=== PATIENT | male | born 1975 | race Caucasian/White ===

== ENCOUNTER 2017-04-12 22:33 | Emergency (ER) | payer OTHER ==
[~2017-04-12] VITALS: Ht 170.2 cm; Wt 80.0 kg
[2017-04-12 23:46] VITALS: Ht 170.2 cm; Wt 80.0 kg
[2017-04-13] MEDS ORDERED: ONDANSETRON 4 MG INJ IV STA (02:09)
[2017-04-13] MEDS ORDERED: SOD CHLORIDE 0.9% 1,000 ML IV STA (02:09)
[2017-04-13] MEDS ORDERED: LIDOCAINE/MYLANTA 40 ML BTL PO ONE (02:30)
[2017-04-13 02:50] LABS: BASOPHIL # 0.1 10^3/ul (0.0-0.1); BASOPHILS % 0.9 % (0.0-2.0); EOSINOPHILS % 0.2 % (0.0-7.0); HEMOGLOBIN 16.1 g/dl (14.0-18.0); LYMPHOCYTES % 31.2 % (15.0-51.0); MEAN CORPUSCULAR HEMOGLOBIN 27.7 pg (29.0-33.0); MEAN PLATELET VOLUME 9.8 fl (7.4-10.4); MONOCYTE # 0.6 10^3/ul (0.3-0.9); MONOCYTES % 6.1 % (0.0-11.0); NEUTROPHILS % 61.3 % (39.0-77.0); PLATELET COUNT 275 10^3/UL (140-415); RED BLOOD COUNT 5.82 10^6/ul (4.70-6.10); RED CELL DISTRIBUTION WIDTH 13.8 % (11.5-14.5); WHITE BLOOD COUNT 9.7 10^3/ul (4.8-10.8)
[2017-04-13 03:08] LABS: ALBUMIN 4.6 g/dl (3.3-4.9); ALBUMIN/GLOBULIN RATIO 1.31; BILIRUBIN,INDIRECT 0.4 mg/dl (0-1.1); BILIRUBIN,TOTAL 0.4 mg/dl (0.2-1.3); CALCIUM 8.5 mg/dl (8.4-10.2); CREATININE 0.75 mg/dl (0.61-1.24); POTASSIUM 3.8 mmol/L (3.5-5.1); TOTAL PROTEIN 8.1 g/dl (6.1-8.1)
[2017-04-13 03:16] LABS: ADD UMIC NO; UR ASCORBIC ACID NEGATIVE (NEGATIVE); UR BILIRUBIN (Dip) NEGATIVE (NEGATIVE); UR BLOOD (Dip) NEGATIVE (NEGATIVE); UR CLARITY CLEAR (CLEAR); UR COLOR COLORLESS (YELLOW); UR GLUCOSE (Dip) NEGATIVE (NEGATIVE); UR KETONES (Dip) NEGATIVE (NEGATIVE); UR LEUKOCYTE ESTERASE (Dip) NEGATIVE Leu/ul (NEGATIVE); UR NITRITE (Dip) NEGATIVE (NEGATIVE); UR RBC 0 /HPF (0-5); UR SPECIFIC GRAVITY (Dip) 1.001 (1.003-1.030); UR TOTAL PROTEIN (Dip) NEGATIVE (NEGATIVE); UR UROBILINOGEN (Dip) NEGATIVE (NEGATIVE)
--- NOTE | 2017-04-13 04:00 | ERD ---
ER Documentation Chief Complaint Date/Time DATE: 04/13/17 TIME: 03:58 Chief Complaint Pt. states he has been drinking for 2 weeks, today he "feels like shit" HPI Several 41-year-old male comes in today with complaints of not feeling well after 2 week drinking binge. Denies suicidal homicidal ideation. Denies any other current complaints. ROS All systems reviewed and are negative except as per history of present illness. Medications Home Meds No Active Prescriptions or Reported Meds Allergies Allergies: Coded Allergies: No Known Allergy (Unverified , 06/06/16) PMhx/Soc Medical and Surgical Hx: pt denies Medical Hx, pt denies Surgical Hx Hx Alcohol Use: Yes (OCCASSIONAL) Hx Substance Use: No Hx Tobacco Use: No Smoking Status: Unknown if ever smoked Physical Exam Vitals Vital Signs Date Time Temp Pulse Resp B/P Pulse Ox O2 Delivery O2 Flow Rate FiO2 04/12/17 23:46 98.0 126 20 141/97 0 Physical Exam Const: [] Head: Atraumatic Eyes: Normal Conjunctiva ENT: Normal External Ears, Nose and Mouth. Neck: Full range of motion..~ No meningismus. Resp: Clear to auscultation bilaterally Cardio: Regular rate and rhythm, no murmurs Abd: Soft, non tender, non distended. Normal bowel sounds Skin: No petechiae or rashes Back: No midline or flank tenderness Ext: No cyanosis, or edema Neur: Awake and alert Psych: Normal Mood and Affect Result Diagram: 04/13/1721404/13/17 0215 Results 24 hrs Laboratory Tests Test 04/13/17 02:15 White Blood Count 9.710^3/ul Red Blood Count 5.8210^6/ul Hemoglobin 16.1g/dl Hematocrit 46.0% Mean Corpuscular Volume 79.0fl Mean Corpuscular Hemoglobin 27.7pg Mean Corpuscular Hemoglobin Concent 35.0g/dl Red Cell Distribution Width 13.8% Platelet Count 25429^3/UL Mean Platelet Volume 9.8fl Neutrophils % 61.3% Lymphocytes % 31.2% Monocytes % 6.1% Eosinophils % 0.2% Basophils % 0.9% Nucleated Red Blood Cells % 0.0/100WBC Neutrophils # (Manual) 5.910^3/ul Lymphocytes # 3.010^3/ul Monocytes # 0.610^3/ul Eosinophils # 0.010^3/ul Basophils # 0.110^3/ul Nucleated Red Blood Cells # 0.010^3/ul Urine Color COLORLESS Urine Clarity CLEAR Urine pH 7.0 Urine Specific [place] 1.001 Urine Ketones NEGATIVEmg/dL Urine Nitrite NEGATIVEmg/dL Urine Bilirubin NEGATIVEmg/dL Urine Urobilinogen NEGATIVEmg/dL Urine Leukocyte Esterase NEGATIVELeu/ul Urine Microscopic RBC 0/HPF Urine Microscopic WBC 0/HPF Urine Hemoglobin NEGATIVEmg/dL Urine Glucose NEGATIVEmg/dL Urine Total Protein NEGATIVEmg/dl Sodium Level 142mmol/L Potassium Level 3.8mmol/L Chloride Level 94mmol/L Carbon Dioxide Level 27mmol/L Anion Gap 25 Blood Urea Nitrogen 10mg/dl Creatinine 0.75mg/dl Glucose Level 121mg/dl Calcium Level 8.5mg/dl Total Bilirubin 0.4mg/dl Direct Bilirubin 0.00mg/dl Indirect Bilirubin 0.4mg/dl Aspartate Amino Transf (AST/SGOT) 64IU/L Alanine Aminotransferase (ALT/SGPT) 53IU/L Alkaline Phosphatase 132IU/L Total Protein 8.1g/dl Albumin 4.6g/dl Globulin 3.50g/dl Albumin/Globulin Ratio 1.31 Lipase 341U/L Current Medications Medications (Trade) Dose Ordered Sig/Kentrell Route PRN Reason Start Time Stop Time Status Last Admin Dose Admin Sodium Chloride (NS) 1,000 ml @ 1,000 mls/hr Q1H STAT IV 04/13/17 02:09 04/13/17 03:08 DC 04/13/17 02:29 Ondansetron HCl (Zofran Inj) 4 mg ONCE STAT IV 04/13/17 02:09 04/13/17 02:11 DC 04/13/17 02:29 Miscellaneous Medication (Gi Cocktail (2)) 40 ml ONCE ONCE PO 04/13/17 02:30 04/13/17 02:31 DC 04/13/17 02:29 Procedures/MDM Medical decision-making: Very pleasant patient comes in for alcohol abuse. At this point clinically stable. Patient be discharged home. Departure Diagnosis: Primary Impression: Alcoholic intoxication Complication of substance-induced condition: uncomplicated Qualified Code: F10.920 - Alcoholic intoxication without complication Condition: Stable Patient Instructions: Alcohol Abuse MALLORIE BARCLAY Apr 13, 2017 04:00
[2017-04-13 04:05] VITALS: BP 136/89; PULSE 98; RESP 18
== END 2017-04-13 04:07 | disposition home or self-care (01) ==
LOC: E/R 22:33
DX: F10.920 Alcohol use, unspecified with intoxication, uncomplicated (principal); R40.2252 Coma scale, best verbal response, oriented, at arrival to emergency department; R40.2142 Coma scale, eyes open, spontaneous, at arrival to emergency department; R40.2362 Coma scale, best motor response, obeys commands, at arrival to emergency department
CPT/HCPCS: 36415; 80053; 81003; 83690; 85025; 96361; 96374; J2405; J7030; Z7502; Z7610

== ENCOUNTER 2017-04-13 21:01 | Emergency (ER) | payer OTHER ==
[~2017-04-13] VITALS: Ht 165.1 cm; Wt 81.0 kg
[2017-04-13 21:52] VITALS: Ht 165.1 cm; Wt 81.0 kg
[2017-04-13] MEDS ORDERED: ONDANSETRON 4 MG INJ IV STA (22:43)
[2017-04-13] MEDS ORDERED: SOD CHLORIDE 0.9% 500 ML IV ONE (23:00)
[2017-04-13 23:22] LABS: BASOPHIL # 0.1 10^3/ul (0.0-0.1); BASOPHILS % 0.7 % (0.0-2.0); EOSINOPHILS % 0.5 % (0.0-7.0); HEMATOCRIT 44.5 % (42.0-52.0); LYMPHOCYTES # 2.2 10^3/ul (0.8-2.9); MEAN CORPUSCULAR HEMOGLOBIN 27.6 pg (29.0-33.0); MEAN CORPUSCULAR HGB CONC 33.7 g/dl (32.0-37.0); MEAN CORPUSCULAR VOLUME 81.8 fl (82.0-101.0); MEAN PLATELET VOLUME 10.1 fl (7.4-10.4); MONOCYTE # 0.7 10^3/ul (0.3-0.9); MONOCYTES % 7.9 % (0.0-11.0); NEUTROPHILS % 65.6 % (39.0-77.0); PLATELET COUNT 246 10^3/UL (140-415); RED BLOOD COUNT 5.44 10^6/ul (4.70-6.10); RED CELL DISTRIBUTION WIDTH 13.8 % (11.5-14.5); WHITE BLOOD COUNT 8.8 10^3/ul (4.8-10.8)
[2017-04-13 23:40] LABS: ALBUMIN 4.3 g/dl (3.3-4.9); ALBUMIN/GLOBULIN RATIO 1.16; BILIRUBIN,INDIRECT 0.9 mg/dl (0-1.1); BILIRUBIN,TOTAL 0.9 mg/dl (0.2-1.3); CREATININE 0.76 mg/dl (0.61-1.24); POTASSIUM 3.9 mmol/L (3.5-5.1)
[2017-04-13 23:59] LABS: ADD UMIC NO; UR ASCORBIC ACID NEGATIVE (NEGATIVE); UR BILIRUBIN (Dip) NEGATIVE (NEGATIVE); UR BLOOD (Dip) NEGATIVE (NEGATIVE); UR CLARITY CLEAR (CLEAR); UR COLOR COLORLESS (YELLOW); UR GLUCOSE (Dip) NEGATIVE (NEGATIVE); UR KETONES (Dip) NEGATIVE (NEGATIVE); UR LEUKOCYTE ESTERASE (Dip) NEGATIVE Leu/ul (NEGATIVE); UR NITRITE (Dip) NEGATIVE (NEGATIVE); UR SPECIFIC GRAVITY (Dip) 1.002 (1.003-1.030); UR TOTAL PROTEIN (Dip) NEGATIVE (NEGATIVE); UR UROBILINOGEN (Dip) NEGATIVE (NEGATIVE)
--- NOTE | 2017-04-14 00:58 | RADRPT ---
PROCEDURE: US right upper quadrant CLINICAL INDICATION: Abdominal pain TECHNIQUE: Multiple real-time images were acquired of the patient's right upper abdomen utilizing a high resolution transducer. COMPARISON: None available FINDINGS: Liver: Increased echogenicity compatible with hepatic steatosis. The liver is normal in contour an d without mass or ductal dilatation. Normal directional blood flow is seen within the patent main po rtal vein. The maximum dimension estimated at 17.8 cm . Gallbladder: Normal. No sonographic Lopez's sign is reported. Common bile duct: Normal; 3.5 mm. There is no evidence for choledocholithiasis. Right Kidney: Normal; maximum length measured at approximately 11.3 cm. Pancreas: Visualized portions are normal. The tail is partially obscured by bowel gas. RPTAT:HJJR IMPRESSION: Hepatic steatosis, otherwise unremarkable right upper quadrant ultrasound. Physician Melody Date Time Electronically viewed and signed by Physician Melody on 04/14/2017 00:58 /
[2017-04-14] MEDS ORDERED: SOD CHLORIDE 0.9% 500 ML IV ONE (01:00)
[2017-04-14] MEDS ORDERED: HYDROCODONE/APAP (5/325) TAB PO ONE (01:00)
--- NOTE | 2017-05-06 00:06 | ERA ---
ER Documentation Chief Complaint Date/Time DATE: 05/06/17 TIME: 00:01 Chief Complaint fever x 2 days w/chest congestion HPI 41-year-old male presenting with a chief complaint of upper abdominal pain 2 days. Patient has also had chest congestion and cough. Patient reports fever. Has not taken any medications to relieve the pain. Patient has had symptoms like this in the past and been diagnosed with pancreatitis. Patient has no other complaints and describes no other associated manifestations. Patient has no other complaints and describes no other associated manifestations. Nursing notes have been reviewed and are consistent with history given. ROS All systems reviewed and are negative except as per history of present illness. Medications Home Meds No Active Prescriptions or Reported Meds Allergies Allergies: Coded Allergies: No Known Allergy (Unverified , 06/06/16) PMhx/Soc Medical and Surgical Hx: pt denies Medical Hx, pt denies Surgical Hx Hx Alcohol Use: Yes (OCCASSIONAL) Hx Substance Use: No Hx Tobacco Use: No Smoking Status: Never smoker Physical Exam Physical Exam Const: 41-year-old male in mild distress Head: Atraumatic Eyes: Normal Conjunctiva ENT: Normal External Ears, Nose and Mouth. Neck: Full range of motion..~ No meningismus. Resp: Clear to auscultation bilaterally Cardio: Regular rate and rhythm, no murmurs Abd: Mild tenderness of the epigastric area. No right upper quadrant tenderness or Lopez sign. Negative psoas Rovsing and obturator signs. No rebound tenderness or guarding.Soft, non distended. Normal bowel sounds Skin: No petechiae or rashes Back: No midline or flank tenderness Ext: No cyanosis, or edema Neur: Awake and alert Psych: Normal Mood and Affect Results 24 hrs Laboratory Tests Test 04/13/17 22:53 White Blood Count 8.810^3/ul Red Blood Count 5.4410^6/ul Hemoglobin 15.0g/dl Hematocrit 44.5% Mean Corpuscular Volume 81.8fl Mean Corpuscular Hemoglobin 27.6pg Mean Corpuscular Hemoglobin Concent 33.7g/dl Red Cell Distribution Width 13.8% Platelet Count 35695^3/UL Mean Platelet Volume 10.1fl Neutrophils % 65.6% Lymphocytes % 25.0% Monocytes % 7.9% Eosinophils % 0.5% Basophils % 0.7% Nucleated Red Blood Cells % 0.0/100WBC Neutrophils # (Manual) 5.810^3/ul Lymphocytes # 2.210^3/ul Monocytes # 0.710^3/ul Eosinophils # 0.010^3/ul Basophils # 0.110^3/ul Nucleated Red Blood Cells # 0.010^3/ul Urine Color COLORLESS Urine Clarity CLEAR Urine pH 8.0 Urine Specific [place] 1.002 Urine Ketones NEGATIVEmg/dL Urine Nitrite NEGATIVEmg/dL Urine Bilirubin NEGATIVEmg/dL Urine Urobilinogen NEGATIVEmg/dL Urine Leukocyte Esterase NEGATIVELeu/ul Urine Hemoglobin NEGATIVEmg/dL Urine Glucose NEGATIVEmg/dL Urine Total Protein NEGATIVEmg/dl Sodium Level 139mmol/L Potassium Level 3.9mmol/L Chloride Level 96mmol/L Carbon Dioxide Level 30mmol/L Anion Gap 17 Blood Urea Nitrogen 11mg/dl Creatinine 0.76mg/dl Glucose Level 99mg/dl Calcium Level 9.0mg/dl Total Bilirubin 0.9mg/dl Direct Bilirubin 0.00mg/dl Indirect Bilirubin 0.9mg/dl Aspartate Amino Transf (AST/SGOT) 82IU/L Alanine Aminotransferase (ALT/SGPT) 52IU/L Alkaline Phosphatase 128IU/L Total Protein 8.0g/dl Albumin 4.3g/dl Globulin 3.70g/dl Albumin/Globulin Ratio 1.16 Lipase 403U/L Current Medications Medications (Trade) Dose Ordered Sig/Kentrell Route PRN Reason Start Time Stop Time Status Last Admin Dose Admin Ondansetron HCl 4 mg 4 mg ONCE STAT IV 04/13/17 22:43 04/13/17 22:45 DC 04/13/17 23:07 Sodium Chloride (NS) 500 ml @ 500 mls/hr Q1H ONCE IV 04/13/17 23:00 04/13/17 23:59 DC 04/13/17 23:07 Acetaminophen/ Hydrocodone Bitart 1 tab 1 tab ONCE ONCE PO 04/14/17 01:00 04/14/17 01:01 DC 04/14/17 01:09 Sodium Chloride (NS) 500 ml @ 500 mls/hr Q1H ONCE IV 04/14/17 01:00 04/14/17 01:59 DC Procedures/MDM Patient was evaluated and worked up for epigastric abdominal discomfort as described in history and physical examination. Patient was given morphine, normal saline, and Zofran IV in the ED with relief of symptoms. CBC: Unremarkable. CMP: Chloride 96, anion gap 17, AST 82, alk phos 128. Lipase: 403 Urinalysis: Unremarkable. Abdominal ultrasound: Hepatic steatosis, otherwise unremarkable right upper quadrant ultrasound Most likely diagnosis is acute pancreatitis. At this time I do not suspect cholangitis, myocardial/Intestinal ischemia, pneumonia, hernia, or esophageal rupture. On repeat exam, the abdomen patient has improved. The patient is well appearing, and tolerates PO. I presented the case my attending who is agreed that outpatient management is appropriate at this time. I have spoke with the patient regarding their condition and future management. They have verbally responded that they understand their status and treatment plan. The patients vitals are stable, and their current condition is appropriate for discharge. The patient will be given discharge instructions with return precautions. Departure Diagnosis: Primary Impression: Abdominal pain Qualified Code: R10.13 - Epigastric pain Additional Impression: Fever Qualified Code: R50.9 - Fever, unspecified fever cause Condition: Stable Patient Instructions: Acute Pancreatitis Additional Instructions: Follow up with your PCP within the next 1-3 days for a more thorough evaluation and a possible referral to a specialist. Return the the emergency department immediately if symptoms worsen or change. If you have any questions regarding medications, ask your pharmacist or us before you leave. If any adverse reactions occur while taking your medications, discontinue the treatment and return to the emergency department immediately. Take your medications as directed, and complete the entire course of treatment. SUSANA MARTÍNEZ PA-C May 06, 2017 00:06
== END 2017-04-14 01:16 | disposition home or self-care (01) ==
LOC: FTE 21:01
DX: R10.13 Epigastric pain (principal)
CPT/HCPCS: 36415; 76705; 80053; 81003; 83690; 85025; 93005; 96374; J2405; J7040; Z7502; Z7610